=== PATIENT | female | born 1950 | race Hispanic/Latino ===

== ENCOUNTER 2017-01-15 11:35 | Emergency (ER) | payer OTHER ==
[2017-01-15 11:51] VITALS: BMI 26.2
[2017-01-15] MEDS ORDERED: HYDROmorphone 0.5 mg/0.5 ml ISec IVP STA ×3 (11:56→16:14)
[2017-01-15] MEDS ORDERED: HYDROmorphone 0.5 mg/0.5 ml ISec ONE ×2 (12:09→13:19)
--- NOTE | 2017-01-15 12:43 | ED PDOC ---
HPI: Trauma/Fall - HPI Time Seen by Provider: 01/15/17 11:43 Chief Complaint (Nursing): Trauma Chief Complaint (Provider): Right shoulder pain, fall History Per: Patient History/Exam Limitations: no limitations Onset/Duration Of Symptoms: Hrs (x1) Injury Occurred (Timing): Hours Ago: (1) Location Of Injury: Right: Shoulder Additional Complaint(s): Ruddy is a 66 y/o who presents to the ED for evaluation of right shoulder pain s/p fall 1 hour prior to arrival. States that she tripped and fell on to her right side and right shoulder. No head injury or loss of consciousness. PMD: Provider TBD Past Medical History Reviewed: Historical Data, Nursing Documentation, Vital Signs Vital Signs: Last Vital Signs Temp 97.3 F L 01/15/17 14:06 Pulse 68 01/15/17 14:06 Resp 18 01/15/17 14:06 BP 143/67 01/15/17 14:06 Pulse Ox 98 01/15/17 14:06 - Medical History PMH: Anxiety, Hypercholesterolemia Denies: Chronic Kidney Disease - Surgical History Surgical History: No Surg Hx - Family History Family History: States: Unknown Family Hx - Social History Current smoker - smoking cessation education provided: No Alcohol: None Drugs: Denies - Home Medications Home Medications: Ambulatory Orders Medication Instructions Recorded oxyCODONE/Acetaminophen [Percocet 1 tab PO Q6 PRN #20 tab 01/15/17 5/325 mg Tab] - Allergies Allergies/Adverse Reactions: Allergies Allergy/AdvReac Type Severity Reaction Status Date / Time No Known Allergies Allergy Verified 01/15/17 11:51 Review of Systems ROS Statement: Except As Marked, All Systems Reviewed And Found Negative Musculoskeletal: Positive for: Shoulder Pain (Right) Neurological: Negative for: Numbness, Headache, Dizziness, Other (LOC) Physical Exam - Reviewed Nursing Documentation Reviewed: Yes Vital Signs Reviewed: Yes - Physical Exam Appears: Positive for: In Acute Distress (Moderate painful distress) Head Exam: Positive for: ATRAUMATIC, NORMAL INSPECTION, NORMOCEPHALIC Skin: Positive for: Normal Color, Warm, Dry Eye Exam: Positive for: EOMI, Normal appearance, PERRL Neck: Positive for: Normal, Painless ROM, Supple Cardiovascular/Chest: Positive for: Regular Rate, Rhythm. Negative for: Murmur Respiratory: Positive for: Normal Breath Sounds. Negative for: Accessory Muscle Use, Respiratory Distress Pulses-Radial (L): 2+ Pulses-Radial (R): 2+ Gastrointestinal/Abdominal: Positive for: Normal Exam, Soft. Negative for: Tenderness Back: Positive for: Normal Inspection. Negative for: Vertebral Tenderness Extremity: Positive for: Tenderness (To the right shoulder, no ROM secondary to pain ), Capillary Refill (< 2 sec), Other (Lower humerus, forearm, and hand appear normal). Negative for: Normal ROM Neurologic/Psych: Positive for: Alert, Oriented. Negative for: Motor/Sensory Deficits - Physician Consult Information Time Consulting Physican Contacted: 13:05 Physician Contacted: Santa Lopez Medical Decision Making Medical Decision Making: Time: 11:56 Initial Plan: --X-Ray Right Humerus --X-Ray Right Shoulder --Dilaudid 0.5 mg IV Time: 13:01 --X-Ray reviewed by me: Humeral head fracture --Paged Orthopedics for consult --Given second dose 0.5 mg Dilaudid --Ordered CT Upper Extremity (R humerus) Time: 13:41 X-ray right shoulder FINDINGS: BONES: Impaction fracture of the humeral head and neck. JOINTS: Normal. Glenohumeral and acromioclavicular joints preserved. No osteoarthritis. SOFT TISSUES: Normal. OTHER FINDINGS: None. IMPRESSION: Impaction fracture of the humeral head and neck. Time: 13:54 X-Ray right humerus FINDINGS: BONES: Impaction fracture of the humeral head and neck. JOINTS: Normal. No osteoarthritis. SOFT TISSUE: Normal. OTHER FINDINGS: None . IMPRESSION: Impaction fracture of the humeral head and neck. Time: 14:07 CT upper extremity FINDINGS: Impaction fracture of the humeral head and neck with minimal comminution. Glenohumeral joint and acromioclavicular joint are intact. Humeral shaft and clavicle appear intact. IMPRESSION: Impaction fracture of the humeral head and neck. Time: 14:10 Patient will be admitted inpatient to Med/Surg for proximal humerus fracture, under the service of Dr. Daly. Time: 16:00 --Patient consulted with friend who works with orthopedist group, he viewed the X-Rays and feels the patient can be discharged for now and will decide later whether to return for surgical consult. --Provided with copies of X-Rays and CT. --Shoulder immobilizer placed. Patient is stable for discharge. Counseling was provided and all questions were answered regarding diagnosis and the need for follow up with Orthopedics and PMD. There is agreement to discharge plan. Return if symptoms persist or worsen. Scribe Attestation: Documented by Dari Torrez, acting as a scribe for Vania Graham MD Provider Scribe Attestation: All medical record entries made by the Scribe were at my direction and personally dictated by me. I have reviewed the chart and agree that the record accurately reflects my personal performance of the history, physical exam, medical decision making, and the department course for this patient. I have also personally directed, reviewed, and agree with the discharge instructions and disposition. Disposition - Clinical Impression Clinical Impression: Proximal humerus fracture - Patient ED Disposition Is Patient to be Admitted: No Counseled Patient/Family Regarding: Studies Performed, Diagnosis, Need For Followup, Rx Given - Disposition Referrals: Santa Lopez MD [Staff Provider] - Disposition: Routine/Home Disposition Time: 16:00 Condition: STABLE Additional Instructions: FOLLOW-UP WITH DR. LOPEZ OR AN ORTHOPEDIST WITHIN 2 DAYS FOR REEVALUATION. Prescriptions: oxyCODONE/Acetaminophen [Percocet 5/325 mg Tab] 1 tab PO Q6 PRN #20 tab PRN Reason: Pain, Moderate (4-7) Instructions: Arm Fracture in Adults (ED) Forms: [employer] (Kinyarwanda)
--- NOTE | 2017-01-15 13:43 | RAD ---
PROCEDURE: Radiographs of the Right Shoulder HISTORY: Fall COMPARISON: No prior. FINDINGS: BONES: Impaction fracture of the humeral head and neck. JOINTS: Normal. Glenohumeral and acromioclavicular joints preserved. No osteoarthritis. SOFT TISSUES: Normal. OTHER FINDINGS: None. IMPRESSION: Impaction fracture of the humeral head and neck.
--- NOTE | 2017-01-15 13:56 | RAD ---
HISTORY: Fall COMPARISON: No prior FINDINGS: BONES: Impaction fracture of the humeral head and neck. JOINTS: Normal. No osteoarthritis. SOFT TISSUE: Normal. OTHER FINDINGS: None . IMPRESSION: Impaction fracture of the humeral head and neck.
[2017-01-15 14:07] VITALS: BP 143/67; PULSE 68; RESP 18; TEMP 97.3; O2SAT 98
--- NOTE | 2017-01-15 14:08 | CT ---
PROCEDURE: HISTORY: R humerus fx COMPARISON: TECHNIQUE: FINDINGS: Impaction fracture of the humeral head and neck with minimal comminution. Glenohumeral joint and acromioclavicular joint are intact. Humeral shaft and clavicle appear intact. IMPRESSION: Impaction fracture of the humeral head and neck.
--- NOTE | 2017-01-16 07:25 | RAD ---
HISTORY: Medical clearance COMPARISON: No prior. FINDINGS: LUNGS: No active pulmonary disease. PLEURA: No significant pleural effusion identified, no pneumothorax apparent. CARDIOVASCULAR: Normal. OSSEOUS STRUCTURES: No significant abnormalities. VISUALIZED UPPER ABDOMEN: Normal. OTHER FINDINGS: None. IMPRESSION: No active disease.
--- NOTE | 2017-01-17 08:40 | CARD ---
APPROVED REPORT EKG Measurement Heart [id number] <Conclusion> Normal sinus rhythm Normal ECG
== END 2017-01-15 16:50 | disposition home or self-care (01) ==
LOC: H.ER 11:35 → H.ERHOLD 14:10 → UNDOADMIN 14:10 → H.ER 16:50
DX: S42.201A Unspecified fracture of upper end of right humerus, initial encounter for closed fracture (principal); W01.0XXA Fall on same level from slipping, tripping and stumbling without subsequent striking against object, initial encounter
CPT/HCPCS: 29240; 71010; 73030; 73060; 73200; 93005; 96374; 96376; 99284; J1170